=== PATIENT | female | born 1960 | race Caucasian/White ===

== ENCOUNTER → 2017-10-14 10:27 | Outpatient (POV) | payer MEDICAID, SELFPAY | PROVIDERS: Family Provider Family Medicine; Visit Provider Dentist | DX: Z00.00 Encounter for general adult medical examination without abnormal findings (principal) ==

== ENCOUNTER → 2019-02-01 15:01 | Outpatient (CLI) | payer MEDICAID, SELFPAY ==
--- NOTE | 2019-02-01 15:05 | CT_ITS ---
CT lung screening EXAM: CT LUNG LOW DOSE WO CONTRAST HISTORY: 45 pack year smoking history, asymptomatic for lung cancer ITS.REASON: H/O NICOTINE DEPENDENCE ORDERING PHYSICIAN: Clem Quiles MD PATIENT AGE: 58 years COMPARISON: none TECHNIQUE: The exam was performed on a GE Light Speed [address] scanner using 2.90 mGy CTDI. A low dose helical CT CHEST was performed on a multi-detector scanner. All CT scans at the facility use one or more dose reduction, viz: automated exposure control, ma/kV adjustment per patient size (including targeted exams where dose is matched to indication, i.e. head), or iterative reconstruction technique. The LDCT was performed in a facility that meets the criteria for the screening program. Data regarding this exam was submitted to [employer] which is an approved registry. The order for this exam indicates that it came as a result of a lung cancer screening counseling shard decision-making visit that included all the elements required of such a visit including smoking cessation. The radiologist interpreting this exam meets the CMS criteria for the LDCT lung cancer screening program. The exam is reported using the Lung-RADS classification scale and reported to the ACR registry. NOTE: This study was performed for the specific purposes of lung cancer screening and is not an alternative to diagnostic chest CT. RADIATION DOSE: CTDI vol(CT dose Index-volume) = 2.90mG DLP (Dose Length Product) = 91.95 mGcm FINDINGS: Calcified granuloma right middle lobe fibrotic change left lung base. COPD. Minimal pericardial thickening anteriorly. No coronary artery calcium apparent. No suspicious pulmonary nodules IMPRESSION: 1. Lung RADS Category: 2, benign 2. Other findings: COPD RECOMMENDATIONS: 12 month LDCT follow-up
== END ==
PROVIDERS: PCP Family Medicine; Visit Provider Family Medicine
DX: Z12.2 Encounter for screening for malignant neoplasm of respiratory organs (principal); Z87.891 Personal history of nicotine dependence

== ENCOUNTER → 2021-03-05 13:25 | Outpatient (CLI) | payer OTHER, SELFPAY ==
[2021-03-05 14:27] LABS: Basophils # 0.1 K/mm3 (0-0.2); Basophils % 0.8 % (0.1-2.0); Eosinophils # 0.1 K/mm3 (0.0-0.4); Eosinophils % 0.7 % (0.1-12.0); Hematocrit 38.7 % (37.0-47.0); Hemoglobin 13.3 g/dL (12.2-16.2); Lymphocytes # 2.2 K/mm3 (0.7-4.5); Lymphocytes % 26.6 % (10-50); Mean Corpuscular HGB Conc 34.3 g/dL (31.8-35.4); Mean Corpuscular Hemoglobin 31.9 pg (27.0-31.2); Mean Corpuscular Volume 92.8 fl (81-99); Mean Platelet Volume 7.9 fl (7.4-10.4); Monocytes # 0.4 K/mm3 (0.1-1.0); Monocytes % 5.5 % (1.7-9.3); Neutrophils # 5.4 K/mm3 (1.8-7.8); Neutrophils % 66.3 % (37.0-80.0); Platelet Count 184 K/mm3 (142-424); Red Blood Count 4.17 M/mm3 (4.20-5.40); Red Cell Distribution Width 13.7 % (11.5-17.5); White Blood Count 8.1 K/mm3 (4.8-10.8)
[2021-03-05 14:50] LABS: Chloride 103 mmol/L (98-107)
[2021-03-05 14:51] LABS: Potassium 4.4 mmoL/L (3.5-5.1); Sodium 137 mmol/L (136-145)
[2021-03-05 14:53] LABS: Blood Urea Nitrogen 11 mg/dl (7-17); Estimated Glomerular Filt Rate 126 ml/min (>60); GFR (African American) 153 ML/MIN (>60)
[2021-03-05 14:54] LABS: Alanine Aminotransferase 8 U/L (12-78); Albumin Level 3.8 g/dl (3.5-5.0); Albumin/Globulin Ratio 1.5 (1.1-1.8); Alkaline Phosphatase 52 U/L (38-126); Amylase < 30 U/L (30-110); Anion Gap 10.4 mEq/L (5-15); Aspartate Amino Transferase 17 U/L (14-36); Bilirubin,Total 0.6 mg/dl (0.2-1.3); Calcium 8.5 mg/dl (8.4-10.2); Carbon Dioxide 28 mmol/L (22.0-30.0); Globulin 2.5 g/dL (1.3-3.2); Glucose 105 mg/dl (74-100); Lipase < 10 U/L (23-300); Total Protein,Serum 6.3 g/dl (6.3-8.2)
== END ==
PROVIDERS: Visit Provider Surgery
DX: R10.9 Unspecified abdominal pain (principal)
CPT/HCPCS: 36415; 80053; 82150; 83690; 85025

== ENCOUNTER → 2021-03-12 08:31 | Outpatient (CLI) | payer OTHER, SELFPAY ==
--- NOTE | 2021-03-12 08:41 | FL_ITS ---
PROCEDURE: FL UPPER GI SMALL BOWEL CLINICAL INDICATION: abdominal pain COMPARISON: No exams were available for comparison TECHNIQUE: FLUOROSCOPY TIME : 5.3 minutes FINDINGS: The swallowing function and soft motility are normal. Spot films of the cervical esophagus while swallowing show no abnormal anterior or posterior indentation of the barium column. There is a small sliding hiatal hernia and there is moderate free GE reflux to the mid thoracic esophagus with the patient in supine position. The stomach was well distended with barium and air in shows no intrinsic abnormality. The duodenal bulb and duodenal sweep are radiographically normal. There is normal transit time of barium through the small bowel. Barium reached the terminal ileum and cecum by approximately 1-1/2 hours. Fluoroscopy of the terminal ileum and cecum was performed with compression and the terminal ileum appear grossly normal. The cecum never did quite fill out or completely fill with barium but there was no evidence of filling defect or constricting lesion of the cecum or lower ascending colon. IMPRESSION: Small sliding hiatal hernia with free GE reflux to the midthoracic esophagus, otherwise grossly normal upper GI series and small-bowel follow-through. Lack of complete filling of the cecum is somewhat bothersome and if there is a history of anemia suggest consideration of a follow-up CT scan abdomen and pelvis with IV and oral contrast and or colonoscopy for additional evaluation. Dictated by: Dr. Vinicio Zelaya MD 03/12/2021 21:20 Dr. Vinicio Zelaya MD in [facility] 03/12/2021 21:20
--- NOTE | 2021-03-12 08:41 | US_ITS ---
PROCEDURE: US GALLBLADDER CLINICAL INDICATION: right upper quad pain COMPARISON: No exams were available for comparison FINDINGS: Pancreas: Unremarkable though a portion of the tail is partially obscured by bowel gas. Liver: Unremarkable. There is appropriate direction of blood flow within a non dilated portal vein. Right kidney: Unremarkable appearing. The right kidney measures 8.7 x 3.4 by 5.1 cm and appears sonographically normal.. Gallbladder: No stones are evident. There is a small amount biliary sludge layering along the dependent wall. There is no gallbladder wall thickening. Common duct is normal in diameter. IMPRESSION: Small amount of biliary sludge otherwise unremarkable study Dictated by: Dr. Vinicio Zelaya MD 03/12/2021 09:45 Dr. Vinicio Zelaya MD in [facility] 03/12/2021 09:45
== END ==
PROVIDERS: PCP Family Medicine; Visit Provider Surgery
DX: R10.10 Upper abdominal pain, unspecified (principal)
CPT/HCPCS: 74246; 74248; 76705

== ENCOUNTER → 2021-03-17 09:08 | Outpatient (CLI) | payer OTHER, SELFPAY ==
--- NOTE | 2021-03-17 09:08 | NM_ITS ---
PROCEDURE: NM GASTRIC EMPTYING STUDY CLINICAL INDICATION: abdominal pain COMPARISON: No exams were available for comparison TECHNIQUE: DOSE: 0.55 mCi technetium sulfur colloid mixed in radiolabeled meal FINDINGS: 1/2 emptying time is 213 minutes which is markedly prolonged with normal 60+/-30 minutes. There was reflux noted in the esophagus versus poor esophageal emptying on the initial image. There is 47 percent retention at 233 minutes. IMPRESSION: Delayed gastric emptying/gastro paresis with gastroesophageal reflux Dictated by: Dinoi Calles MD 03/17/2021 18:04 Dioni Calles MD in [facility] 03/17/2021 18:04
== END ==
PROVIDERS: PCP Family Medicine; Visit Provider Surgery
DX: R10.9 Unspecified abdominal pain (principal)
CPT/HCPCS: 78264; A9541

== ENCOUNTER → 2021-05-21 07:46 | Outpatient (CLI) | payer OTHER, SELFPAY | PROVIDERS: Visit Provider Internal Medicine Gastroenterology | DX: Z20.822 Contact with and (suspected) exposure to COVID-19 (principal); Z01.812 Encounter for preprocedural laboratory examination; Z12.11 Encounter for screening for malignant neoplasm of colon | CPT/HCPCS: U0003 ==

== ENCOUNTER 2024-08-07 20:04 | Emergency (ER) | payer OTHER, SELFPAY ==
[2024-08-07] VITALS (13 sets, daily range): BP systolic 85–116; BP diastolic 46–83; PULSE 87–99; RESP 19–34; TEMP 38.5–39.3; O2SAT 92–100; BMI 19.5
--- NOTE | 2024-08-07 20:10 | ECG_ITS ---
APPROVED REPORT Exam: Resting ECG HR:92 bpm ECG Measurements Heart Rate 92 AXES PA 143 P 74 QRSd 96 QRS 92 QT 355 T 47 QTc 405 Conclusion SINUS RHYTHM BORDERLINE RIGHT AXIS DEVIATION [QRS AXIS > 90] NONSPECIFIC T-WAVE ABNORMALITY BORDERLINE ECG Significant wandering limits diagnostic ability of this EKG Electronically signed by : NESSA CRENSHAW, 08/10/2024 07:39:08
--- NOTE | 2024-08-07 20:12 | HMH.EDGENADL ---
Discharge Plan Disposition Patient Disposition: Xfer Other Prescriptions Prescriptions: No Action olanzapine 10 mg tablet 10 mg PO desvenlafaxine succinate 50 mg tablet extended release 24 hr 50 mg PO loratadine 10 mg tablet 10 mg PO montelukast 10 mg tablet 10 mg PO Patient Comments: TAKE 1 TABLET BY MOUTH DAILY levothyroxine 100 mcg tablet 100 mcg PO simvastatin 40 mg tablet 40 mg PO Patient Comments: TAKE 1 TABLET BY MOUTH AT BEDTIME risperidone 1 mg tablet 4 mg PO Patient Comments: TAKE ONE TABLET BY MOUTH EVERY NIGHT propranolol 20 mg tablet 20 mg PO Patient Comments: TAKE ONE TABLET BY MOUTH EVERY MORNING benztropine 1 mg tablet 1 mg PO Patient Comments: TAKE ONE TABLET BY MOUTH TWICE DAILY risperidone 2 mg tablet 2 mg PO Patient Comments: TAKE ONE TABLET BY MOUTH EVERY MORNING risperidone 4 mg tablet 4 mg PO Patient Comments: TAKE ONE TABLET BY MOUTH EVERY NIGHT AT BEDTIME famotidine 20 mg tablet 20 mg PO Patient Comments: TAKE 1 TABLET BY MOUTH TWICE DAILY albuterol sulfate 90 mcg/actuation HFA aerosol inhaler 1 inh INHALATION acetaminophen 500 mg tablet 500 mg PO Patient Comments: TAKE 1 TABLET BY MOUTH EVERY 6 HOURS NEEDED FOR PAIN latanoprost 0.005 % drops 1 drp OPHTHALMIC Patient Comments: INSTILL 1 DROP INTO EACH AFFECTED EYE(S) ONCE DAILY IN THE EVENING propranolol 10 mg tablet 10 mg PO ondansetron HCl 4 mg tablet 4 mg PO paliperidone palmitate 234 mg/1.5 mL syringe 234 mg IM Patient Comments: INJECT 1.5MLS INTO THE MUSCLE ONE TIME PER MONTH budesonide-formoterol 160-4.5 mcg/actuation HFA aerosol inhaler 2 puff INHALATION docusate sodium 100 mg capsule 100 mg PO polyethylene glycol 3350 17 gram/dose powder 17 g PO aspirin 325 mg tablet 325 mg PO DAILY Clinical Impressions Clinical Impression: Septic shock, Pancytopenia, Symptomatic anemia, Acute non-ST elevation myocardial infarction (NSTEMI), Dilated bowel Stand Alone Forms Stand Alone Forms: Transfer Record - ED Instructions Patient Instructions: DI for Altered Mental Status Print Language Print Language: Guyanese Discharge ED Provider: Song Howard General Adult HPI <Song Howard MD - Last Filed: 08/07/24 23:40> General Chief complaint: Altered Mental Status Stated complaint: AMS Time Seen by Provider: 08/07/24 20:12 History of Present Illness HPI narrative: Please note that above description of symptoms, in this electronic medical record under categorization of recalled from ER triage doctor by RN are reflective of an initial nursing assessment, however, is not reflective of my full history and physical exam that was personally taken and clarified. Consequentially, this preceding description of symptoms, which may include the patient's categorized chief complaint in the EMR, do not reflect my personal clinical impression, and the ultimate description of history of present illness and patient stated complaints should be deferred to this section of the note. Unless stated otherwise or congruent with this section of the note, additional signs, symptoms, or incongruence should be interpreted as inaccurate with my clinical impression. Related Data Home Medications ?Medication ?Instructions ?Recorded ?Confirmed acetaminophen 500 mg tablet 500 mg PO 03/05/21 03/19/21 albuterol sulfate 90 mcg/actuation 1 inh inhalation 03/05/21 03/19/21 aerosol inhaler aspirin 325 mg tablet 325 mg PO DAILY 03/05/21 03/19/21 benztropine 1 mg tablet 1 mg PO 03/05/21 03/19/21 budesonide-formoterol HFA 160 2 puff inhalation 03/05/21 03/19/21 mcg-4.5 mcg/actuation aerosol inhaler desvenlafaxine succinate 50 mg 50 mg PO 03/05/21 03/19/21 tablet,extended release 24 hr docusate sodium 100 mg capsule 100 mg PO 03/05/21 03/19/21 famotidine 20 mg tablet 20 mg PO 03/05/21 03/19/21 latanoprost 0.005 % eye drops 1 drp ophthalmic (eye) 03/05/21 03/19/21 levothyroxine 100 mcg tablet 100 mcg PO 03/05/21 03/19/21 loratadine 10 mg tablet 10 mg PO 03/05/21 03/19/21 montelukast 10 mg tablet 10 mg PO 03/05/21 03/19/21 olanzapine 10 mg tablet 10 mg PO 03/05/21 03/19/21 ondansetron HCl 4 mg tablet 4 mg PO 03/05/21 03/19/21 paliperidone palmitate 234 mg/1.5 234 mg IM 03/05/21 03/19/21 mL intramuscular syringe polyethylene glycol 3350 17 17 g PO 03/05/21 03/19/21 gram/dose oral powder propranolol 10 mg tablet 10 mg PO 03/05/21 03/19/21 propranolol 20 mg tablet 20 mg PO 03/05/21 03/19/21 risperidone 1 mg tablet 4 mg PO 03/05/21 03/19/21 risperidone 2 mg tablet 2 mg PO 03/05/21 03/19/21 risperidone 4 mg tablet 4 mg PO 03/05/21 03/19/21 simvastatin 40 mg tablet 40 mg PO 03/05/21 03/19/21 Allergies Allergy/AdvReac Type Severity Reaction Status Date / Time erythromycin base Allergy Unknown Verified 03/19/21 13:09 (ERYTHROMYCIN BASE) haloperidol (From HALDOL) Allergy Unknown Verified 03/19/21 13:09 Sulfa (Sulfonamide Allergy Unknown Verified 03/19/21 13:09 Antibiotics) (SULFA (SULFONAMIDE ANTIBIOTICS)) PCN Allergy Unknown Uncoded 03/05/21 12:42 PFSH <Song Howard MD - Last Filed: 08/07/24 23:40> PFS Disclaimer: The information contained in this section may have been updated after the patient was seen, as this information can be updated by other users. Social History Smoking Status: Unknown if ever smoked alcohol intake: never substance use type: denies use current occupational status: disabled Travel in the last 8 weeks: None household members: caregiver housing: assisted living facility Other Medical History Have you received the Pneumonia Vaccine: No <Song Howard MD - Last Filed: 08/07/24 23:40> ROS Obtained: Yes All systems reviewed & no additional complaints except as documented Physical Exam <Song Howard MD - Last Filed: 08/07/24 23:40> General General appearance: lethargic Head Head exam: atraumatic and normocephalic Eye Eye exam: Present normal appearance, PERRL and EOMI ENT ENT exam: Present mucous membranes dry Neck Neck exam: Present normal inspection, full ROM and trachea midline Respiratory Respiratory exam: Present normal lung sounds bilaterally; Absent respiratory distress, wheezes, stridor, accessory muscle use or prolonged expiratory phase Cardiovascular Cardiovascular exam: Present normal rhythm, tachycardia and other (Pulses equal symmetric in upper and lower extremities) Abdominal Exam Abdominal exam: Present soft and tenderness; Absent distention, guarding, rebound, rigidity or pulsatile mass Abdominal tenderness: Present diffuse and moderate Extremities Exam Extremities exam: Absent edema Neurological Exam Neurological exam: Present alert, oriented X3 and CN II-XII intact; Absent motor sensory deficit Skin Skin exam: Present warm and dry; Absent diaphoresis or erythema Medical Decision Making <Song Howard MD - Last Filed: 08/07/24 23:40> Medical Records Medical records reviewed: Yes I reviewed the patient's medical records. Screening: Per USPSTF and CDC recommendations, given the prevalence of disease in our region, it is our hospital?s policy to screen for HIV and viral Hepatitis for all patients aged 18 and over and those with ongoing risk factors. Jai Inquiry Pt receiving controlled substance: No Jai was queried for this patient: No Vital Signs: 08/07/24 20:05 08/07/24 21:00 08/07/24 21:02 Temperature 101.3 F H Temperature Source Rectal Pulse Rate 99 H 96 H Pulse Rate [Left] 93 H Respiratory Rate 24 20 30 H Blood Pressure 103/46 L 113/83 Blood Pressure [Left Arm] 98/54 L Blood Pressure Mean 86 94 Blood Pressure Mean [Left Arm] 68 Blood Pressure Source [Left Arm] Manual Cuff/ Auscultation 02 Sat by Pulse Oximetry 92 L 99 95 Oxygen Delivery Method Non-Rebreather 08/07/24 21:06 08/07/24 21:09 08/07/24 21:10 Temperature Temperature Source Pulse Rate 92 H 91 H 91 H Pulse Rate [Left] Respiratory Rate 27 H 31 H 34 H Blood Pressure 87/53 L 97/59 L 99/55 L Blood Pressure [Left Arm] Blood Pressure Mean 64 72 64 Blood Pressure Mean [Left Arm] Blood Pressure Source [Left Arm] 02 Sat by Pulse Oximetry 95 95 93 L Oxygen Delivery Method 08/07/24 21:12 Temperature Temperature Source Pulse Rate 89 Pulse Rate [Left] Respiratory Rate 34 H Blood Pressure 114/62 Blood Pressure [Left Arm] Blood Pressure Mean 71 Blood Pressure Mean [Left Arm] Blood Pressure Source [Left Arm] 02 Sat by Pulse Oximetry 96 Oxygen Delivery Method Lab Data Lab Results 08/07/24 20:15: WBC 1.3 L*, RBC 0.79 L*, Hgb 3.3 L*, Hct 9.6 L*, MCV 121.4 H, MCH 42.0 H*, MCHC 34.6, RDW 18.7 H, Plt Count 94 L, MPV 9.2, Neut % (Auto) 58.2, Lymph % (Auto) 38.3, [place] % (Auto) 2.6, Eos % (Auto) 0.3, Baso % (Auto) 0.6, Neut # (Auto) 0.8 L*, Lymph # (Auto) 0.5 L, [place] # (Auto) 0.0 L, Eos # (Auto) 0.0, Baso # (Auto) 0.0, PT 13.0 H, INR 1.18 H, APTT 20.2 L, Sodium 132 L, Potassium 3.1 L, Chloride 101, Carbon Dioxide 26, Anion Gap 8.1, BUN 18 H, Creatinine 0.70, Estimated Creat Clear 42, Estimated GFR 85, Est GFR ( Amer) 103, Glucose 140 H, Lactate 2.0, Calcium 7.6 L, Total Bilirubin 1.1, AST 17, ALT 12, Alkaline Phosphatase 48, Troponin I 0.82 H, NT-Pro-B Natriuret Pep 2310 H, Total Protein 4.9 L, Albumin 2.8 L, Globulin 2.1, Albumin/Globulin Ratio 1.3, TSH 2.44, Thyroxine (T4) 13.7 H, Blood Type AB Positive, Antibody Screen Positive, Crossmatch (AHG) See Detail 08/07/24 20:18: HIV 1&2 Antibody Rapid Nonreactive 08/07/24 20:30: Specimen Source Left brachial, O2 % 100, ABG pH 7.56 H*, ABG pCO2 31.5 L, ABG pO2 492.5 H, ABG HCO3 27.7 H, ABG Total CO2 28.7 H, ABG O2 Saturation 100, ABG Base Excess 5.5 H, Dioni Test Non applicable, ABG Lactate 1.4 08/07/24 20:32: Blood Type Confirm AB Positive 08/07/24 22:30: Hgb 6.6 L* D, Hct 18.5 L* 08/07/24 23:24: Urine Color Yellow, Urine Appearance Clear, Urine pH 7.0, Ur Specific [place] <= 1.005, Urine Protein Negative, Urine Glucose (UA) Negative, Urine Ketones Negative, Urine Blood Negative, Urine Nitrate Negative, Urine Bilirubin Negative, Urine Urobilinogen 4.0, Ur Leukocyte Esterase Negative, Urine RBC None, Urine WBC 3-5, Ur Squamous Epith Cells Occasional, Urine Bacteria 1+ 08/08/24 00:12: Troponin I 2.11 H 08/07/24 22:30 08/07/24 20:15 Orders (Tests/Meds): ED MEDICATIONS Generic Name Dose Route Start Last Admin Trade Name Sari PRN Reason Stop Dose Admin Hydrocortisone Sodium Succinate 100 mg 08/08/24 01:09 08/08/24 01:18 Hydrocortisone Sod Succinate 100mg Vial IV 08/08/24 01:10 100 mg ONCE ONE Administration Sodium Chloride 250 mls @ 25 mls/hr 08/07/24 20:45 08/08/24 00:42 Sod Chlor 0.9% 250ml Bag IV 08/08/24 20:44 Not Given .Q10H RAPHAEL Sodium Chloride 250 mls @ 25 mls/hr 08/07/24 23:45 08/08/24 00:59 Sod Chlor 0.9% 250ml Bag IV 08/08/24 23:44 Not Given .Q10H RAPHAEL Norepinephrine/Dextrose 8 mg in 250 mls @ 15 mls/hr 08/08/24 00:15 08/08/24 01:08 Norepinephrine 8mg/250ml-D5w Premix IV 09/07/24 00:14 12 mcg/min .[id number] RAPHAEL 22.5 mls/hr Titration Protocol 8 MCG/MIN Vasopressin 40 unit/ Sodium 102 mls @ 1.53 mls/hr 08/08/24 01:09 Chloride IV 09/07/24 01:08 .Q24H RAPHAEL Protocol 0.01 UNITS/MIN Miscellaneous 1 each 08/07/24 21:15 08/07/24 21:30 Vancomycin Consult Request NOTAPPLIC 09/06/24 21:14 1 each CONSULT PHARMACY RAPHAEL Administration Sodium Chloride 10 ml 08/07/24 20:13 Sodium Chloride 0.9% 10ml Flush Syringe IV 09/06/24 20:12 NEEDED PRN Maintain IV Site Discontinued Medications Generic Name Dose Route Start Last Admin Trade Name Sari PRN Reason Stop Dose Admin Acetaminophen 1,000 mg 08/07/24 23:27 08/08/24 00:08 Acetaminophen 1,000mg/100ml Vial IV 08/07/24 23:28 1,000 mg ONCE ONE Administration Diphenhydramine HCl 50 mg 08/07/24 21:03 08/07/24 21:58 Diphenhydramine 50mg/Ml Vial IV 08/07/24 21:04 50 mg ONCE ONE Administration Lactated Ringer's 1,000 mls @ 999 mls/hr 08/07/24 20:13 08/08/24 00:01 Lactated Ringer's 1000 Ml Bag IV 08/07/24 21:13 Not Given .Q1H1M ONE Cefepime HCl 2 gm/ Sodium 100 mls @ 200 mls/hr 08/07/24 21:11 08/07/24 21:59 Chloride IV 08/07/24 21:40 200 mls/hr ONCE ONE Administration Metronidazole 500 mg in 100 mls @ 100 mls/hr 08/07/24 21:11 08/07/24 22:00 Flagyl 500mg/100ml Ivpb IV 08/07/24 22:10 100 mls/hr ONCE ONE Administration Vancomycin HCl 1,000 mg/ 250 mls @ 125 mls/hr 08/07/24 21:30 08/07/24 21:59 Sodium Chloride IV 08/07/24 23:29 125 mls/hr ONCE ONE Administration Lactated Ringer's 1,360 mls @ 680 mls/hr 08/07/24 21:36 08/07/24 22:00 Lactated Ringer's 1000 Ml Bag 30 ml/kg infuse over 2 hr (1360 ml) 08/07/24 23:35 680 mls/hr IV Administration .Q2H ONE Calcium Gluconate/Sodium Chloride 2 gm in 100 mls @ 50 mls/hr 08/07/24 22:49 08/08/24 00:08 Calcium Gluconate 2,000mg/100ml Nacl Premix IV 08/08/24 00:48 50 mls/hr ONCE ONE Administration Calcium Gluconate/Sodium Chloride 2 gm in 100 mls @ 50 mls/hr 08/07/24 23:27 08/08/24 01:18 Calcium Gluconate 2,000mg/100ml Nacl Premix IV 08/08/24 01:26 50 mls/hr ONCE ONE Administration Iopamidol 160 ml 08/07/24 22:30 08/07/24 22:31 Iopamidol-370 (76%);100ml Bottle IV 08/07/24 22:31 160 ml ONCE ONE Administration Sodium Chloride 50 ml 08/07/24 22:30 08/07/24 22:31 0.9 % Sodium Chloride 50 Ml Vial IV 08/07/24 22:31 50 ml ONCE ONE Administration Sodium Chloride 10 ml 08/07/24 22:30 08/07/24 22:31 Sodium Chloride 0.9% 10ml Syr (Rad Only) IV 08/07/24 22:31 10 ml ONCE ONE Administration ORDERS Category Date Time Status Antibody Identification Stat [facility] 08/07/24 20:15 Received Transfuse RBC's [Red Blood Cells] Stat K 08/07/24 20:15 Results Type and Screen Stat K 08/07/24 20:[address] angio abdomen pelvis Stat Cat Scan 08/07/24 20:[address] angio chest - dissection Stat Cat Scan 08/07/24 20:[address] angio head Stat Cat Scan 08/07/24 20:[address] angio neck Stat Cat Scan 08/07/24 20:[address] cervical spine wo con Stat Cat Scan 08/07/24 20:[address] head/brain wo con Stat Cat Scan 08/07/24 20:[address] lumbar spine wo con Stat Cat Scan 08/07/24 20:[address] thoracic spine wo con Stat Cat Scan 08/07/24 20:15 Completed XR chest portable Stat Exams 08/07/24 20:15 Completed XR pelvis 1-2V Stat Exams 08/07/24 20:15 Completed Activated Partial Thrombo Time Stat Lab 08/07/24 20:15 Completed Complete Blood Count Auto Diff Stat Lab 08/07/24 20:15 Completed Comprehensive Metabolic Panel Stat Lab 08/07/24 20:15 Completed HIV (1&2) Antibody Rapid Stat Lab 08/07/24 20:18 Completed Hemoglobin & Hematocrit, Post Timed Lab 08/07/24 22:30 Completed Hep C Ab with Reflex to RNA Stat Lab 08/07/24 20:18 Received Lactic Acid Stat Lab 08/07/24 20:15 Completed NT Pro Brain Natriuretic Pep. Stat Lab 08/07/24 20:15 Completed Prothrombin Time INR Stat Lab 08/07/24 20:15 Completed T4 (Thyroxine) Stat Lab 08/07/24 20:15 Completed TSH [Thyroid Stimulating Hormone] Stat Lab 08/07/24 20:15 Completed Troponin I Q3H Lab 08/07/24 23:30 Completed Troponin I Q3H Lab 08/08/24 02:30 Ordered Troponin I Stat Lab 08/07/24 20:15 Completed Urinalysis and Microscopic Stat Lab 08/07/24 23:24 Completed Blood Culture Stat Micro 08/07/24 20:15 Received ABG [Arterial Blood Gas] Stat RT 08/07/24 20:30 Completed Lactate Arterial Stat RT 08/07/24 20:30 Completed VBG [Venous Blood Gas] Stat RT 08/07/24 20:13 Ordered HEART Score History (anamnesis): Slightly suspicious ECG: Non-specific disturbance Age: 45-65 years Risk factors: 3 or more risk factors Troponin: > 3x normal limit HEART Score: 6 Medical Decision Narrative: 64-year-old female history of hypertension, hyperlipidemia, hypothyroidism, psychiatric comorbidities presenting with lethargy. EMS was called out for lethargy. When they arrived, patient was lethargic, GCS 12, minimally responsive. 80% on room air. Put on nasal cannula oxygen and brought to the emergency department. On arrival, patient complaining of abdominal pain and weakness. GCS 14 for me. Following commands, arousable to voice. Patient appears very acutely on chronically ill. Pallid, weak, low skin turgor. Abdomen soft, but diffusely tender and appears to be out of proportion to exam. Patient had urinated and had bowel movement on herself and route. Does not appear to be melanotic. Cardiopulmonary exam with tachycardia, but no murmurs gallops or rubs. Lungs are clear bilaterally. Differential includes symptomatic anemia, GI bleed, UTI, sepsis, intracranial bleed, mesenteric ischemia, metabolic, endocrinologic, iatrogenic, pharmacologic, overdose, withdrawal, among others Patient placed on continuous cardiac monitoring and continuous pulse ox with initial blood pressure 98/54, heart rate 93, saturation 92% on nonrebreather. Independent interpretation of EKG shows wandering baseline, but no obvious acute ischemic change. Rate of 92, WI 143, QRS 96, QTc 405.. Patient was given 1 l of fluids empirically for symptomatic management and correction of underlying abnormalities. Workup independently interpreted and significant for ABG with pH 7.5, CO2 low at 31, bicarb normal. Hemoglobin [id number] 3.0. Patient's lactate 1.4. 2 units of uncrossed matched O+ blood transfused. Patient began having erythema of the left upper extremity with transfuse blood, given 50 mg IV Benadryl. Type and screen later resulted with a be positive blood positive for antibodies. Further workup demonstrates CBC concerning for leukopenia 1.3 with neutropenia of 0.8. Hemoglobin 3.3 pretransfusion, 6.6 after 2 units of packed red cells. Platelets also low at 94,000. INR 1.18, PTT 20.2. Chemistry with hyponatremia 132, hypokalemia 3.1, nonactionable LFTs. Patient's initial troponin 0.82, BNP elevated at 2300. Mildly elevated T4, normal TSH. On independent interpretation of imaging, No acute findings on chest x-ray. No intracranial hemorrhage, no cervical, thoracic, or lumbar spine injury. No obvious intrathoracic abnormality, PE, dissection, etc. See radiology read for full review of final results. Heart score 6. On reevaluation, patient appears to be mentating better, blood pressure improved, still febrile given IV Tylenol for this. 2 more grams of calcium as well as empiric antibiotics given as well. With reported allergy to sulfa antibiotics, vancomycin, cefepime, Flagyl. Tissue perfusion reassessment performed within 3 hours, patient mentating much better than baseline on arrival, still following commands, hemodynamically stable. [facility] was contacted, unable to accept patient because she does not meet ICU criteria, given her hemoglobin of 6.6 after transfusion and hemodynamic stability. Recommended calling another facility. was contacted. Prior to transfer, care handed off to oncoming physician. Director Of Student [employer] disclaimer Much of this encounter note is an electronic labor utilization superintendent spoken language to printed text. Electronic labor utilization superintendent of the spoken language may permit errors. Although I have reviewed the note, some errors may still exist. <Farhat Richmond MD - Last Filed: 08/08/24 01:46> Vital Signs: 08/07/24 20:05 08/07/24 21:00 08/07/24 21:02 Temperature 101.3 F H Temperature Source Rectal Pulse Rate 99 H 96 H Pulse Rate [Left] 93 H Respiratory Rate 24 20 30 H Blood Pressure 103/46 L 113/83 Blood Pressure [Left Arm] 98/54 L Blood Pressure Mean 86 94 Blood Pressure Mean [Left Arm] 68 Blood Pressure Source [Left Arm] Manual Cuff/ Auscultation 02 Sat by Pulse Oximetry 92 L 99 95 Oxygen Delivery Method Non-Rebreather 08/07/24 21:06 08/07/24 21:09 08/07/24 21:10 Temperature Temperature Source Pulse Rate 92 H 91 H 91 H Pulse Rate [Left] Respiratory Rate 27 H 31 H 34 H Blood Pressure 87/53 L 97/59 L 99/55 L Blood Pressure [Left Arm] Blood Pressure Mean 64 72 64 Blood Pressure Mean [Left Arm] Blood Pressure Source [Left Arm] 02 Sat by Pulse Oximetry 95 95 93 L Oxygen Delivery Method 08/07/24 21:12 Temperature Temperature Source Pulse Rate 89 Pulse Rate [Left] Respiratory Rate 34 H Blood Pressure 114/62 Blood Pressure [Left Arm] Blood Pressure Mean 71 Blood Pressure Mean [Left Arm] Blood Pressure Source [Left Arm] 02 Sat by Pulse Oximetry 96 Oxygen Delivery Method Lab Data Lab Results 08/07/24 20:15: WBC 1.3 L*, RBC 0.79 L*, Hgb 3.3 L*, Hct 9.6 L*, MCV 121.4 H, MCH 42.0 H*, MCHC 34.6, RDW 18.7 H, Plt Count 94 L, MPV 9.2, Neut % (Auto) 58.2, Lymph % (Auto) 38.3, [place] % (Auto) 2.6, Eos % (Auto) 0.3, Baso % (Auto) 0.6, Neut # (Auto) 0.8 L*, Lymph # (Auto) 0.5 L, [place] # (Auto) 0.0 L, Eos # (Auto) 0.0, Baso # (Auto) 0.0, PT 13.0 H, INR 1.18 H, APTT 20.2 L, Sodium 132 L, Potassium 3.1 L, Chloride 101, Carbon Dioxide 26, Anion Gap 8.1, BUN 18 H, Creatinine 0.70, Estimated Creat Clear 42, Estimated GFR 85, Est GFR ( Amer) 103, Glucose 140 H, Lactate 2.0, Calcium 7.6 L, Total Bilirubin 1.1, AST 17, ALT 12, Alkaline Phosphatase 48, Troponin I 0.82 H, NT-Pro-B Natriuret Pep 2310 H, Total Protein 4.9 L, Albumin 2.8 L, Globulin 2.1, Albumin/Globulin Ratio 1.3, TSH 2.44, Thyroxine (T4) 13.7 H, Blood Type AB Positive, Antibody Screen Positive, Crossmatch (AHG) See Detail 08/07/24 20:18: HIV 1&2 Antibody Rapid Nonreactive 08/07/24 20:30: Specimen Source Left brachial, O2 % 100, ABG pH 7.56 H*, ABG pCO2 31.5 L, ABG pO2 492.5 H, ABG HCO3 27.7 H, ABG Total CO2 28.7 H, ABG O2 Saturation 100, ABG Base Excess 5.5 H, Dioni Test Non applicable, ABG Lactate 1.4 08/07/24 20:32: Blood Type Confirm AB Positive 08/07/24 22:30: Hgb 6.6 L* D, Hct 18.5 L* 08/07/24 23:24: Urine Color Yellow, Urine Appearance Clear, Urine pH 7.0, Ur Specific [place] <= 1.005, Urine Protein Negative, Urine Glucose (UA) Negative, Urine Ketones Negative, Urine Blood Negative, Urine Nitrate Negative, Urine Bilirubin Negative, Urine Urobilinogen 4.0, Ur Leukocyte Esterase Negative, Urine RBC None, Urine WBC 3-5, Ur Squamous Epith Cells Occasional, Urine Bacteria 1+ 08/08/24 00:12: Troponin I 2.11 H Orders (Tests/Meds): ED MEDICATIONS Generic Name Dose Route Start Last Admin Trade Name Bharatq PRN Reason Stop Dose Admin Hydrocortisone Sodium Succinate 100 mg 08/08/24 01:09 08/08/24 01:18 Hydrocortisone Sod Succinate 100mg Vial IV 08/08/24 01:10 100 mg ONCE ONE Administration Sodium Chloride 250 mls @ 25 mls/hr 08/07/24 20:45 08/08/24 00:42 Sod Chlor 0.9% 250ml Bag IV 08/08/24 20:44 Not Given .Q10H RAPHAEL Sodium Chloride 250 mls @ 25 mls/hr 08/07/24 23:45 08/08/24 00:59 Sod Chlor 0.9% 250ml Bag IV 08/08/24 23:44 Not Given .Q10H RAPHAEL Norepinephrine/Dextrose 8 mg in 250 mls @ 15 mls/hr 08/08/24 00:15 08/08/24 01:08 Norepinephrine 8mg/250ml-D5w Premix IV 09/07/24 00:14 12 mcg/min .[id number] RAPHAEL 22.5 mls/hr Titration Protocol 8 MCG/MIN Vasopressin 40 unit/ Sodium 102 mls @ 1.53 mls/hr 08/08/24 01:09 Chloride IV 09/07/24 01:08 .Q24H [facility] Protocol 0.01 UNITS/MIN Miscellaneous 1 each 08/07/24 21:15 08/07/24 21:30 Vancomycin Consult Request NOTAPPLIC 09/06/24 21:14 1 each CONSULT PHARMACY RAPHAEL Administration Sodium Chloride 10 ml 08/07/24 20:13 Sodium Chloride 0.9% 10ml Flush Syringe IV 09/06/24 20:12 NEEDED PRN Maintain IV Site Discontinued Medications Generic Name Dose Route Start Last Admin Trade Name Freq PRN Reason Stop Dose Admin Acetaminophen 1,000 mg 08/07/24 23:27 08/08/24 00:08 Acetaminophen 1,000mg/100ml Vial IV 08/07/24 23:28 1,000 mg ONCE ONE Administration Diphenhydramine HCl 50 mg 08/07/24 21:03 08/07/24 21:58 Diphenhydramine 50mg/Ml Vial IV 08/07/24 21:04 50 mg ONCE ONE Administration Lactated Ringer's 1,000 mls @ 999 mls/hr 08/07/24 20:13 08/08/24 00:01 Lactated Ringer's 1000 Ml Bag IV 08/07/24 21:13 Not Given .Q1H1M ONE Cefepime HCl 2 gm/ Sodium 100 mls @ 200 mls/hr 08/07/24 21:11 08/07/24 21:59 Chloride IV 08/07/24 21:40 200 mls/hr ONCE ONE Administration Metronidazole 500 mg in 100 mls @ 100 mls/hr 08/07/24 21:11 08/07/24 22:00 Flagyl 500mg/100ml Ivpb IV 08/07/24 22:10 100 mls/hr ONCE ONE Administration Vancomycin HCl 1,000 mg/ 250 mls @ 125 mls/hr 08/07/24 21:30 08/07/24 21:59 Sodium Chloride IV 08/07/24 23:29 125 mls/hr ONCE ONE Administration Lactated Ringer's 1,360 mls @ 680 mls/hr 08/07/24 21:36 08/07/24 22:00 Lactated Ringer's 1000 Ml Bag 30 ml/kg infuse over 2 hr (1360 ml) 08/07/24 23:35 680 mls/hr IV Administration .Q2H ONE Calcium Gluconate/Sodium Chloride 2 gm in 100 mls @ 50 mls/hr 08/07/24 22:49 08/08/24 00:08 Calcium Gluconate 2,000mg/100ml Nacl Premix IV 08/08/24 00:48 50 mls/hr ONCE ONE Administration Calcium Gluconate/Sodium Chloride 2 gm in 100 mls @ 50 mls/hr 08/07/24 23:27 08/08/24 01:18 Calcium Gluconate 2,000mg/100ml Nacl Premix IV 08/08/24 01:26 50 mls/hr ONCE ONE Administration Iopamidol 160 ml 08/07/24 22:30 08/07/24 22:31 Iopamidol-370 (76%);100ml Bottle IV 08/07/24 22:31 160 ml ONCE ONE Administration Sodium Chloride 50 ml 08/07/24 22:30 08/07/24 22:31 0.9 % Sodium Chloride 50 Ml Vial IV 08/07/24 22:31 50 ml ONCE ONE Administration Sodium Chloride 10 ml 08/07/24 22:30 08/07/24 22:31 Sodium Chloride 0.9% 10ml Syr (Rad Only) IV 08/07/24 22:31 10 ml ONCE ONE Administration ORDERS Category Date Time Status Antibody Identification Stat [facility] 08/07/24 20:15 Received Transfuse RBC's [Red Blood Cells] Stat [facility] 08/07/24 20:15 Results Type and Screen Stat [facility] 08/07/24 20:[address] angio abdomen pelvis Stat Cat Scan 08/07/24 20:[address] angio chest - dissection Stat Cat Scan 08/07/24 20:[address] angio head Stat Cat Scan 08/07/24 20:[address] angio neck Stat Cat Scan 08/07/24 20:[address] cervical spine wo con Stat Cat Scan 08/07/24 20:[address] head/brain wo con Stat Cat Scan 08/07/24 20:[address] lumbar spine wo con Stat Cat Scan 08/07/24 20:[address] thoracic spine wo con Stat Cat Scan 08/07/24 20:15 Completed XR chest portable Stat Exams 08/07/24 20:15 Completed XR pelvis 1-2V Stat Exams 08/07/24 20:15 Completed Activated Partial Thrombo Time Stat Lab 08/07/24 20:15 Completed Complete Blood Count Auto Diff Stat Lab 08/07/24 20:15 Completed Comprehensive Metabolic Panel Stat Lab 08/07/24 20:15 Completed HIV (1&2) Antibody Rapid Stat Lab 08/07/24 20:18 Completed Hemoglobin & Hematocrit, Post Timed Lab 08/07/24 22:30 Completed Hep C Ab with Reflex to RNA Stat Lab 08/07/24 20:18 Received Lactic Acid Stat Lab 08/07/24 20:15 Completed NT Pro Brain Natriuretic Pep. Stat Lab 08/07/24 20:15 Completed Prothrombin Time INR Stat Lab 08/07/24 20:15 Completed T4 (Thyroxine) Stat Lab 08/07/24 20:15 Completed TSH [Thyroid Stimulating Hormone] Stat Lab 08/07/24 20:15 Completed Troponin I Q3H Lab 08/07/24 23:30 Completed Troponin I Q3H Lab 08/08/24 02:30 Ordered Troponin I Stat Lab 08/07/24 20:15 Completed Urinalysis and Microscopic Stat Lab 08/07/24 23:24 Completed Blood Culture Stat Micro 08/07/24 20:15 Received ABG [Arterial Blood Gas] Stat RT 08/07/24 20:30 Completed Lactate Arterial Stat RT 08/07/24 20:30 Completed VBG [Venous Blood Gas] Stat RT 08/07/24 20:13 Ordered ECG Data Tracing #1: I reviewed this ECG and interpreted as documented below: Sinus rhythm, rate of 93, ST depressions in the leads V3 through 6 ECG initial impression date: 08/08/24 ECG initial impression time: 00:20 HEART Score HEART Score: 6 Medical Decision Narrative: 64-year-old female history of hypertension, hyperlipidemia, hypothyroidism, psychiatric comorbidities presenting with lethargy. EMS was called out for lethargy. When they arrived, patient was lethargic, GCS 12, minimally responsive. 80% on room air. Put on nasal cannula oxygen and brought to the emergency department. On arrival, patient complaining of abdominal pain and weakness. GCS 14 for me. Following commands, arousable to voice. Patient appears very acutely on chronically ill. Pallid, weak, low skin turgor. Abdomen soft, but diffusely tender and appears to be out of proportion to exam. Patient had urinated and had bowel movement on herself and route. Does not appear to be melanotic. Cardiopulmonary exam with tachycardia, but no murmurs gallops or rubs. Lungs are clear bilaterally. Differential includes symptomatic anemia, GI bleed, UTI, sepsis, intracranial bleed, mesenteric ischemia, metabolic, endocrinologic, iatrogenic, pharmacologic, overdose, withdrawal, among others Patient placed on continuous cardiac monitoring and continuous pulse ox with initial blood pressure 98/54, heart rate 93, saturation 92% on nonrebreather. Independent interpretation of EKG shows wandering baseline, but no obvious acute ischemic change. Rate of 92, WI 143, QRS 96, QTc 405.. Patient was given 1 l of fluids empirically for symptomatic management and correction of underlying abnormalities. Workup independently interpreted and significant for ABG with pH 7.5, CO2 low at 31, bicarb normal. Hemoglobin [id number] 3.0. Patient's lactate 1.4. 2 units of uncrossed matched O+ blood transfused. Patient began having erythema of the left upper extremity with transfuse blood, given 50 mg IV Benadryl. Type and screen later resulted with a be positive blood positive for antibodies. Further workup demonstrates CBC concerning for leukopenia 1.3 with neutropenia of 0.8. Hemoglobin 3.3 pretransfusion, 6.6 after 2 units of packed red cells. Platelets also low at 94,000. INR 1.18, PTT 20.2. Chemistry with hyponatremia 132, hypokalemia 3.1, nonactionable LFTs. Patient's initial troponin 0.82, BNP elevated at 2300. Mildly elevated T4, normal TSH. On independent interpretation of imaging, No acute findings on chest x-ray. No intracranial hemorrhage, no cervical, thoracic, or lumbar spine injury. No obvious intrathoracic abnormality, PE, dissection, etc. See radiology read for full review of final results. Heart score 6. On reevaluation, patient appears to be mentating better, blood pressure improved, still febrile given IV Tylenol for this. 2 more grams of calcium as well as empiric antibiotics given as well. With reported allergy to sulfa antibiotics, vancomycin, cefepime, Flagyl. Tissue perfusion reassessment performed within 3 hours, patient mentating much better than baseline on arrival, still following commands, hemodynamically stable. [facility] was contacted, unable to accept patient because she does not meet ICU criteria, given her hemoglobin of 6.6 after transfusion and hemodynamic stability. Recommended calling another facility. was contacted. Prior to transfer, care handed off to oncoming physician. Director Of [employer] disclaimer Much of this encounter note is an electronic labor utilization superintendent spoken language to printed text. Electronic labor utilization superintendent of the spoken language may permit errors. Although I have reviewed the note, some errors may still exist. Yi ISRA[place]: I assumed care of the patient at the time of handoff from the prior provider. On reassessment patient's respiratory status is improving, now on 5 L nasal cannula instead of nonrebreather. Patient was normotensive for some time, but then became persistently hypotensive. Unfortunately, we are unable to give her any additional blood because she is antibody positive and our lab reports that they have normal blood that they can give her. I am concerned for volume overload in the setting of 2 unit PRBC transfusion and the 2 L that she has already gotten, as such I do not think additional IV fluids would be appropriate at this time. Patient was initiated on Levophed, currently MAP in the 60s on 0.13 mcg/kg/minute. Patient was also given stress dose steroids. Patient's urine returned, no evidence of urinary tract infection. No blood in the urine. CT of the abdomen and pelvis shows multiple abnormalities including edematous and distended small bowel loops thought to be the jejunum,, distended loop of bowel without haustra with fecalized contents which could represent transverse colon versus partially obstructed small bowel loop, large amount of of barium and stool within the colon and rectum. I called and discussed the case with the [facility] and Dr. Alvarez who accepted the patient in transfer. On 08/07/24, the high probability of a clinically significant, sudden or life threatening deterioration of the following system(s) cardio-pulmonary required my full and direct attention, intervention and personal management. The time I documented below is in addition to time spent performing reported procedures but includes the following listed in this critical care notation. Total critical care time: 45 minutes. Farhat Richmond MD Critical Care <Song Howard MD - Last Filed: 08/07/24 23:40> Critical Care Time Critical Care Time: Yes (ID heme) Attestation: On 08/07/24, the high probability of a clinically significant, sudden or life threatening deterioration of the following system(s) required my full and direct attention, intervention and personal management. The time I documented below is in addition to time spent performing reported procedures but includes the following listed in this critical care notation. Total Time Total Critical Care Time: 120
--- NOTE | 2024-08-07 20:15 | XR_ITS ---
PROCEDURE INFORMATION: Exam: XR Chest Exam date and time: 08/07/2024 10:17 PM Age: 64 years old Clinical indication: Injury or trauma; Blunt trauma (contusions or hematomas) TECHNIQUE: Imaging protocol: Radiologic exam of the chest. Views: 1 view. COMPARISON: CT ANGIO CHEST 08/07/2024 10:06 PM FINDINGS: Lungs: Unremarkable. No consolidation. Pleural spaces: Unremarkable. No pleural effusion. No pneumothorax. Heart/Mediastinum: Unremarkable. No cardiomegaly. Bones/joints: Unremarkable. IMPRESSION: No acute findings.
--- NOTE | 2024-08-07 20:15 | CT_ITS ---
PROCEDURE INFORMATION: Exam: CT Thoracic Spine Without Contrast Exam date and time: 08/07/2024 9:49 PM Age: 64 years old Clinical indication: Lethargic, found down TECHNIQUE: Imaging protocol: Computed tomography of the thoracic spine without contrast. Radiation optimization: All CT scans at this facility use at least one of these dose optimization techniques: automated exposure control; mA and/or kV adjustment per patient size (includes targeted exams where dose is matched to clinical indication); or iterative reconstruction. COMPARISON: CT THORACIC SPINE WO CON 08/07/2024 9:49 PM FINDINGS: Bones/joints: No acute fracture. Normal alignment. No significant disc bulge or herniation. No severe spinal canal stenosis. No significant neural foraminal narrowing. Soft tissues: Unremarkable. IMPRESSION: Unremarkable CT Spine.
--- NOTE | 2024-08-07 20:15 | CT_ITS ---
PROCEDURE INFORMATION: Exam: CTA Chest With Contrast Exam date and time: 08/07/2024 10:06 PM Age: 64 years old Clinical indication: Lethargic, found down TECHNIQUE: Imaging protocol: Computed tomographic angiography of the chest with contrast. Exam focused on the arteries. 3D rendering (Not supervised by radiologist): MIP and/or 3D reconstructed images were created by the technologist. Radiation optimization: All CT scans at this facility use at least one of these dose optimization techniques: automated exposure control; mA and/or kV adjustment per patient size (includes targeted exams where dose is matched to clinical indication); or iterative reconstruction. Contrast material: ISO 370; Contrast volume: 80 ml; Contrast route: INTRAVENOUS (IV); COMPARISON: LUNGSCREEN CT lung screening 02/01/2019 3:15 PM FINDINGS: Pulmonary arteries: Normal. No pulmonary emboli. Aorta: Unremarkable. No aortic aneurysm. No aortic dissection. Lungs: Unremarkable. No consolidation. No masses. Pleural spaces: Unremarkable. No pneumothorax. No pleural effusion. Heart: Unremarkable. No cardiomegaly. No pericardial effusion. Lymph nodes: Unremarkable. No enlarged lymph nodes. Bones/joints: Unremarkable. No acute fracture. Soft tissues: Unremarkable. IMPRESSION: No acute findings.
--- NOTE | 2024-08-07 20:15 | CT_ITS ---
PROCEDURE INFORMATION: Exam: CTA Abdomen and Pelvis With Contrast Exam date and time: 08/07/2024 10:06 PM Age: 64 years old Clinical indication: Lethargic, found down TECHNIQUE: Imaging protocol: Computed tomographic angiography of the abdomen and pelvis with contrast. Exam focused on the arteries. 3D rendering (Not supervised by radiologist): MIP and/or 3D reconstructed images were created by the technologist. Radiation optimization: All CT scans at this facility use at least one of these dose optimization techniques: automated exposure control; mA and/or kV adjustment per patient size (includes targeted exams where dose is matched to clinical indication); or iterative reconstruction. Contrast material: ISO 370; Contrast volume: 80 ml; Contrast route: INTRAVENOUS (IV); COMPARISON: CT ANGIO ABDOMEN PELVIS 08/07/2024 10:06 PM FINDINGS: Aorta: No aortic aneurysm. No aortic dissection. Celiac trunk and mesenteric arteries: No occlusion or significant stenosis. Renal arteries: No occlusion or significant stenosis. Right iliac arteries: No occlusion or significant stenosis. Left iliac arteries: No occlusion or significant stenosis. Liver: No mass. Gallbladder and biliary ducts: Unremarkable. No calcified stones. No ductal dilation. Pancreas: Unremarkable. No mass. No ductal dilation. Spleen: Unremarkable. No splenomegaly. Adrenal glands: Unremarkable. No mass. Kidneys and ureters: Unremarkable. No solid mass. No hydronephrosis. Stomach and bowel: Prominent thickening of a small bowel loop in the midabdomen, suspect proximal jejunum. Large amount of stool throughout the colon. Ahaustral distended loop of bowel with fecalized contents, possibly transverse colon versus a partially obstructed small bowel loop. Concern for narrowing at the splenic flexure, ensure that colonoscopy is up-to-date. Appendix: No evidence of appendicitis. Intraperitoneal space: Unremarkable. No free air. No significant fluid collection. Lymph nodes: Unremarkable. No enlarged lymph nodes. Urinary bladder: Unremarkable. No mass. Reproductive: Unremarkable as visualized. Bones/joints: No acute fracture. Soft tissues: Unremarkable. IMPRESSION: 1. Ahaustral distended loop of bowel with fecalized contents, possibly transverse colon versus a partially obstructed small bowel loop. Concern for narrowing at the splenic flexure, ensure that colonoscopy is up-to-date. 2. Prominent thickening of a small bowel loop in the midabdomen, suspect proximal jejunum. 3. Large amount of barium in the descending colon and rectum. Consider partial obstruction related to this.
--- NOTE | 2024-08-07 20:15 | CT_ITS ---
PROCEDURE INFORMATION: Exam: CT Lumbar Spine Without Contrast Exam date and time: 08/07/2024 9:52 PM Age: 64 years old Clinical indication: Lethargic, found down TECHNIQUE: Imaging protocol: Computed tomography of the lumbar spine without contrast. Radiation optimization: All CT scans at this facility use at least one of these dose optimization techniques: automated exposure control; mA and/or kV adjustment per patient size (includes targeted exams where dose is matched to clinical indication); or iterative reconstruction. COMPARISON: CT THORACIC SPINE WO CON 08/07/2024 9:49 PM FINDINGS: Bones/joints: No acute fracture. Normal alignment. L1-L2: No significant disc bulge or herniation. No severe spinal canal stenosis. No significant neural foraminal narrowing. L2-L3: No significant disc bulge or herniation. No severe spinal canal stenosis. No significant neural foraminal narrowing. L3-L4: No significant disc bulge or herniation. No severe spinal canal stenosis. No significant neural foraminal narrowing. L4-L5: No significant disc bulge or herniation. No severe spinal canal stenosis. No significant neural foraminal narrowing. L5-S1: No significant disc bulge or herniation. No severe spinal canal stenosis. No significant neural foraminal narrowing. Soft tissues: Unremarkable. IMPRESSION: Unremarkable spine.
--- NOTE | 2024-08-07 20:15 | XR_ITS ---
PROCEDURE INFORMATION: Exam: XR Pelvis Exam date and time: 08/07/2024 10:17 PM Age: 64 years old Clinical indication: Injury or trauma; Blunt trauma (contusions or hematomas); Bilateral; Pelvic region TECHNIQUE: Imaging protocol: Radiologic exam of the pelvis. Views: 1 or 2 view. COMPARISON: CT ANGIO ABDOMEN PELVIS 08/07/2024 10:06 PM FINDINGS: Bones/joints: Unremarkable. No acute fracture. Soft tissues: Unremarkable. IMPRESSION: No acute findings.
--- NOTE | 2024-08-07 20:15 | CT_ITS ---
PROCEDURE INFORMATION: Exam: CTA Neck With Contrast Exam date and time: 08/07/2024 9:59 PM Age: 64 years old Clinical indication: Lethargic, found down TECHNIQUE: Imaging protocol: Computed tomographic angiography of the neck with contrast. Exam focused on the cervical segments of the vasculature. 3D rendering (Not supervised by radiologist): MIP and/or 3D reconstructed images were created by the technologist. Radiation optimization: All CT scans at this facility use at least one of these dose optimization techniques: automated exposure control; mA and/or kV adjustment per patient size (includes targeted exams where dose is matched to clinical indication); or iterative reconstruction. Contrast material: ISO 370; Contrast volume: 80 ml; Contrast route: INTRAVENOUS (IV); COMPARISON: CT CERVICAL SPINE WO CON 08/07/2024 9:46 PM FINDINGS: Right common carotid artery: No stenosis. No dissection or occlusion. Right internal carotid artery: No stenosis of the extracranial segment. No dissection or occlusion. Right external carotid artery: No occlusion or stenosis of the origin. Left common carotid artery: No stenosis. No dissection or occlusion. Left internal carotid artery: No stenosis of the extracranial segment. No dissection or occlusion. Left external carotid artery: No occlusion or stenosis of the origin. Right vertebral artery: No stenosis. No dissection or occlusion. Left vertebral artery: No stenosis. No dissection or occlusion. Soft tissues: Normal. No significant soft tissue swelling. Bones/joints: No acute fracture. Esophagus: Fluid-filled dilated esophagus. Other findings: Calcific plaque at the carotid bifurcations without hemodynamically significant stenosis. IMPRESSION: 1. No evidence for occlusion, stenosis or dissection of the cervical vessels. 2. Calcific plaque at the carotid bifurcations without hemodynamically significant stenosis. 3. Fluid-filled dilated esophagus. CT chest may be helpful. REFERENCES: NASCET CRITERIA. The degree of stenosis in the cervical segment of the internal carotid artery is based on NASCET criteria. Normal is no stenosis. Mild is less than 50% stenosis. Moderate is 50-69% stenosis. Severe is 70% to 99% stenosis. Total occlusion is no detectable patent lumen.
--- NOTE | 2024-08-07 20:15 | CT_ITS ---
PROCEDURE INFORMATION: Exam: CT Cervical Spine Without Contrast Exam date and time: 08/07/2024 9:46 PM Age: 64 years old Clinical indication: Lethargic, found down TECHNIQUE: Imaging protocol: Computed tomography of the cervical spine without contrast. Radiation optimization: All CT scans at this facility use at least one of these dose optimization techniques: automated exposure control; mA and/or kV adjustment per patient size (includes targeted exams where dose is matched to clinical indication); or iterative reconstruction. COMPARISON: CT HEAD/BRAIN WO CON 08/07/2024 9:42 PM FINDINGS: Bones: Spinal alignment is normal. No fracture or bone destruction. Multilevel degenerative disc disease predominantly at C2-C3, C3-C4, C4-C5 levels with disc space narrowing and small disc osteophyte complexes. [id number] multilevel facet arthropathy. Paranasal sinuses: Moderate mucosal thickening sphenoid sinus. Lungs: Lung apices are normal. Vasculature: Right carotid calcifications. Soft tissues: Unremarkable. IMPRESSION: 1. Spinal alignment is normal. 2. No fracture or bone destruction. 3. Multilevel degenerative disc disease predominantly at C2-C3, C3-C4, C4-C5 levels with disc space narrowing and small disc osteophyte complexes. 4. Tqtj-ye-qtxqtcwb multilevel facet arthropathy. 5. Right carotid calcifications. 6. Moderate mucosal thickening sphenoid sinus.
--- NOTE | 2024-08-07 20:15 | CT_ITS ---
PROCEDURE INFORMATION: Exam: CT Head Without Contrast Exam date and time: 08/07/2024 9:42 PM Age: 64 years old Clinical indication: Other: Lethargic, found down TECHNIQUE: Imaging protocol: Computed tomography of the head without contrast. Radiation optimization: All CT scans at this facility use at least one of these dose optimization techniques: automated exposure control; mA and/or kV adjustment per patient size (includes targeted exams where dose is matched to clinical indication); or iterative reconstruction. COMPARISON: CT HEAD/BRAIN WO CON 08/07/2024 9:42 PM FINDINGS: Brain: No evidence for intracranial hemorrhage, mass lesions or acute stroke. Intracranial vascular calcifications. Cerebral ventricles: No ventriculomegaly. Pituitary gland and sella: Negative Paranasal sinuses: Moderate mucosal thickening sphenoid sinus. Mastoid air cells: Visualized mastoid air cells are well aerated. Orbital cavities: Negative. Parotid and submandibular glands: Negative Bones: Unremarkable. No acute fracture. Soft tissues: Unremarkable. Vasculature: Negative. IMPRESSION: 1. No evidence for intracranial hemorrhage, mass lesions or acute stroke. 2. Intracranial vascular calcifications. 3. Moderate mucosal thickening sphenoid sinus.
--- NOTE | 2024-08-07 20:15 | CT_ITS ---
PROCEDURE INFORMATION: Exam: CTA Head With Contrast, Arteriography Exam date and time: 08/07/2024 9:59 PM Age: 64 years old Clinical indication: Lethargic, found down TECHNIQUE: Imaging protocol: Computed tomographic angiography of the head with contrast. Exam focused on the arteries. 3D rendering (Not supervised by radiologist): MIP and/or 3D reconstructed images were created by the technologist. Radiation optimization: All CT scans at this facility use at least one of these dose optimization techniques: automated exposure control; mA and/or kV adjustment per patient size (includes targeted exams where dose is matched to clinical indication); or iterative reconstruction. Contrast material: ISO 370; Contrast volume: 80 ml; Contrast route: INTRAVENOUS (IV); COMPARISON: CT ANGIO HEAD 08/07/2024 9:59 PM FINDINGS: ANTERIOR CIRCULATION: Right internal carotid artery: Intracranial segment is patent with no significant stenosis. No aneurysm. Right middle cerebral artery: No occlusion or significant stenosis. No aneurysm. Right anterior cerebral artery: No occlusion or significant stenosis. No aneurysm. Left internal carotid artery: Intracranial segment is patent with no significant stenosis. No aneurysm. Left middle cerebral artery: No occlusion or significant stenosis. No aneurysm. Left anterior cerebral artery: No occlusion or significant stenosis. No aneurysm. POSTERIOR CIRCULATION: Right vertebral artery: No occlusion or significant stenosis. No aneurysm. Left vertebral artery: No occlusion or significant stenosis. No aneurysm. Basilar artery: No occlusion or significant stenosis. No aneurysm. Right posterior cerebral artery: No occlusion or significant stenosis. No aneurysm. Left posterior cerebral artery: No occlusion or significant stenosis. No aneurysm. Brain: Intracranial vascular calcifications. Cerebral ventricles: No ventriculomegaly. Paranasal sinuses: Moderate mucosal thickening sphenoid sinus. Bones/joints: Unremarkable. No acute fracture. Soft tissues: Unremarkable. Other findings: No evidence for large vessel occlusion. IMPRESSION: 1. No evidence for large vessel occlusion. 2. No evidence for intracranial hemorrhage, mass lesions or acute stroke. 3. Intracranial vascular calcifications.
[2024-08-07 20:33] LABS: ABG Base Excess 5.5 mmol/L (-2.4-2.3); ABG HCO3 27.7 mmhg (22.0-26.0); ABG Oxygen Saturation 100 % (90-100); ABG PCO2 31.5 mmhg (35.0-45.0); ABG PO2 492.5 mmhg (80-100); ABG TCO2 28.7 mmhg (23-27); Lactate Arterial 1.4 mmol/L (0.4-2.0)
--- NOTE | 2024-08-07 20:43 | PC.NURSE ---
per Lisa Pillai Medic, Manual BP 50/30 in left arm
--- NOTE | 2024-08-07 20:44 | PC.NURSE ---
2040- called Lab and spoke with Eboni reported that we needed 2 units emergent blood per MD Howard,
--- NOTE | 2024-08-07 20:45 | PC.NURSE ---
rectal temp 101.3. both sets blood cultures are in lab
[2024-08-07 20:46] LABS: Allen's Test Non Applicable; Oxygen 100 %
[2024-08-07 20:47] LABS: ABG PH 7.56 mmol/L (7.35-7.45); Source Left Brachial
[2024-08-07 20:57] LABS: Basophils % 0.6 % (0.1-2.0); Eosinophils % 0.3 % (0.1-12.0); Lymphocytes # 0.5 K/mm3 (0.7-4.5); Lymphocytes % 38.3 % (10-50); Mean Corpuscular HGB Conc 34.6 g/dL (31.8-35.4); Mean Corpuscular Volume 121.4 fl (81-99); Mean Platelet Volume 9.2 fl (7.4-10.4); Monocytes % 2.6 % (1.7-9.3); Neutrophils # 0.8 K/mm3 (1.8-7.8); Neutrophils % 58.2 % (37.0-80.0); Platelet Count 94 K/mm3 (142-424); Red Cell Distribution Width 18.7 % (11.5-17.5); White Blood Count 1.3 K/mm3 (4.8-10.8)
[2024-08-07 21:02] LABS: Red Blood Count 0.79 M/mm3 (4.20-5.40)
[2024-08-07 21:08] LABS: Alanine Aminotransferase 12 U/L (12-78); Albumin Level 2.8 g/dl (3.5-5.0); Albumin/Globulin Ratio 1.3 (1.1-1.8); Alkaline Phosphatase 48 U/L (38-126); Anion Gap 8.1 mEq/L (5-15); Aspartate Amino Transferase 17 U/L (14-36); Bilirubin,Total 1.1 mg/dl (0.2-1.3); Blood Urea Nitrogen 18 mg/dl (7-17); Calcium 7.6 mg/dl (8.4-10.2); Carbon Dioxide 26 mmol/L (22.0-30.0); Chloride 101 mmol/L (98-107); Creatinine Clearance Estimated 42 mL/min (50-200); Estimated Glomerular Filt Rate 85 ml/min (>60); GFR (African American) 103 ML/MIN (>60); Globulin 2.1 g/dL (1.3-3.2); Glucose 140 mg/dl (74-100); Hematocrit 9.6 % (37.0-47.0); Hemoglobin 3.3 g/dL (12.2-16.2); Potassium 3.1 mmoL/L (3.5-5.1); Sodium 132 mmol/L (136-145); Total Protein,Serum 4.9 g/dl (6.3-8.2)
[2024-08-07 21:20] LABS: Activated Partial Thrombo Time 20.2 seconds (22.8-30.6); INR 1.18 (0.9-1.1)
[2024-08-07 21:22] LABS: Troponin I 0.82 ng/ml (0.00-0.034)
[2024-08-07 21:25] LABS: T4 (Thyroxine) 13.7 ug/dl (5.53-11.0)
[2024-08-07 21:29] LABS: NT Pro Brain Natriuretic Pep. 2310 pg/mL (0-125)
[2024-08-07] MEDS: VANCOMYCIN CONSULT REQUEST 1 EACH NOTAPPLIC (21:30)
[2024-08-07 21:39] LABS: Thyroid Stimulating Hormone 2.44 uIU/mL (0.465-4.68)
[2024-08-07 21:53] LABS: HIV (1&2) Antibody Rapid NONREACTIVE (NONREACTIVE)
[2024-08-07] MEDS: diphenhydrAMINE 50MG/ML VIAL 50 MG IV (21:58)
[2024-08-07] MEDS: VANCOMYCIN HCL 1,000 MG in 0.9 % SODIUM CHLORIDE 250 ML 125 MG IV (21:59)
[2024-08-07] MEDS: CEFEPIME HCL 2 GM in 0.9 % SODIUM CHLORIDE 100 ML IV (21:59)
[2024-08-07] MEDS: METRONIDAZ/SOD CHL 500 MG/100 ML PIGGYBACK 100 MG IV (22:00)
[2024-08-07] MEDS: LACTATED RINGERS 680 ML IV (22:00)
--- NOTE | 2024-08-07 22:10 | PC.NURSE ---
Called RAD to power share all images to [facility] per MD Song. Spoke with Angela and she stated she'll send as soon as they're finished.
[2024-08-07] MEDS: SODIUM CHLORIDE 0.9% 10ML SYR (RAD ONLY) 10 ML IV (22:31)
[2024-08-07] MEDS: IOPAMIDOL-370 (76%);100ML BOTTLE 160 ML IV (22:31)
[2024-08-07] MEDS: 0.9 % SODIUM CHLORIDE 50 ML VIAL IV (22:31)
[2024-08-07 22:40] LABS: Hemoglobin 6.6 g/dL (12.2-16.2)
[2024-08-07 22:41] LABS: Hematocrit 18.5 % (37.0-47.0)
--- NOTE | 2024-08-07 22:52 | PC.NURSE ---
Patient arrived to the ED via EMS and was directed to 3 where using a draw sheet method patient was transferred to hospital [facility], I attempted an 18 ga IV in patients L AC with no success, I then attempted an 18ga IV in patients R AC and was successfully established the IV and labs were drawn along with blood for a type and screen for lab. After that I then began running lactated ringers through the 18ga IV at a TKO rate. After patients lab work resulted Dr. Howard ordered 2 units of emergent blood that was administered by Delilah Muhammad, I established a 16ga IV in the patients L forearm flushed and secured, both units of blood ran concurrently under pressure bags patient was administered 50mg of Benadryl for a possible reaction to blood products. After the patient received blood she was disconnected and taken to CT, once returned from CT patient was placed on 3 antibiotics. As per the MAR patient I administered Cefepime 1 gram 100mL @ 200mL's/hr started at 2241, also Vancomycin 1g 250mL's @ 125mL's/hr started at 2235 then finally administered Flagyl at 2240 100mL's @ 100mL's/hr. Patients H and H was also redrawn prior to the anitbiotics being started. I then assisted in placing a brower catheter in this patient.
--- NOTE | 2024-08-07 22:53 | PC.NURSE ---
Emergent Blood [place] Dominguez Female :1960 MedRec: [id number] 08/07/2024 2305 Nurse Note by Irais Krishna RN : 1960 Patient Age: 64 Emergent Released Blood Documentation Product 1 Unit Number: [id number] Product 2 Unit Number: [id number] Start Time: 205008/07/24 Start Time: 2053 Stop Time: 212008/07/24 Stop Time: 2120 Vitals: Pre- BP-50/30, HR 96 O2 92% Temp 101.3 Start: 98/54 HR 98 O2 94 T 101.7 5 min: 100/54 HR 99 O2 94 T101.7 10 min: 97/59 HR 91 O2 94 T 101.7 15 min: 109/66 HR 89 O2 97 T 101.9 30 min: 105/60 HR 86 O2 88 T 101.9 45 min 116/59 HR 92 O2 93 T 102.0 1 hour 100/62 HR 96 O2 94 T 102.0 Completion: 118/59 HR 95 O2 95 102.7 1 hour post: 112/71 HR 92 O2 92 102.6 Pt rec'd 2 units of emergent blood. 20:59 Pt had a small reaction (urticaria) on the L arm. was informed and before Benadryl was given, it had already cleared up. Pt had no further reactions as blood finished transfusing. 2106 50 IV Benadryl was given Per MD orders, blood was not stopped.
--- NOTE | 2024-08-07 23:29 | PC.NURSE ---
Called about a transfer. They said they will give us a call back as soon as possible.
[2024-08-07 23:31] LABS: Appearance,Urine CLEAR (Clear); Bilirubin,Urine Negative (Negative); Blood, Urine Negative (Negative); Color,Urine YELLOW (Yellow); Glucose,Urine (UA) Negative (Negative); Ketones,Urine Negative (Negative); Leukocyte Esterase,Urine Negative (Negative); Microscopic, Urine URINE MICROSCOPIC (MICROSCOPIC); Nitrate,Urine Negative (Negative); Protein,Urine Negative (Negative); Specific Gravity, Urine <= 1.005 (1.005-1.030)
--- NOTE | 2024-08-07 23:34 | PC.NURSE ---
[facility] called back, doctor talking to at this time.
[2024-08-07 23:43] LABS: Bacteria,Urine 1+ /lpf; Squamous Epithelial Cell,Urine Occasional #/hpf (0-5)
--- NOTE | 2024-08-07 23:48 | PC.NURSE ---
declined ICU bed. Called for a transfer, we are awaiting a call back at this time.
[2024-08-08] VITALS (19 sets, daily range): BP systolic 75–113; BP diastolic 37–71; PULSE 75–94; RESP 14–31; TEMP 39–39.2; O2SAT 98–100
[2024-08-08] MEDS: CALCIUM GLUC IN NACL, ISO-OSM 2 GM/100 ML BAG IV ×2 (00:08→01:18)
[2024-08-08] MEDS: ACETAMINOPHEN 1,000MG/100ML VIAL 1000 MG IV (00:08)
[2024-08-08] MEDS: NOREPINEPHRINE BITARTRATE/D5W 8 MG/250 ML PLAST..BAG 15 MG IV (00:10)
--- NOTE | 2024-08-08 00:19 | ECG_ITS ---
APPROVED REPORT Exam: Resting ECG HR:93 bpm ECG Measurements Heart Rate 93 AXES DC 141 P -12 QRSd 81 QRS 79 QT 271 T -8 QTc 322 Conclusion SINUS RHYTHM NONSPECIFIC ST & T-WAVE ABNORMALITY ABNORMAL ECG UNCONFIRMED REPORT Electronically signed by : ESTEFANIA DE LEON, 08/08/2024 06:47:09
--- NOTE | 2024-08-08 00:20 | PC.NURSE ---
pt weaned to 5L NC at this time O2 sat 100%
--- NOTE | 2024-08-08 00:21 | PC.NURSE ---
speaking with at this time.
--- NOTE | 2024-08-08 00:36 | PC.NURSE ---
pt weaned to 4L NC at this time.
--- NOTE | 2024-08-08 00:44 | PC.NURSE ---
While receiving a bed assignment from they transferred me to [facility] and they were unavailable for flight, called [facility] and [facility] accepted the flight with a 29 min ETA
[2024-08-08 00:53] LABS: Troponin I 2.11 ng/ml (0.00-0.034)
--- NOTE | 2024-08-08 01:01 | PC.NURSE ---
pt titrated to 3L NC at this time.
[2024-08-08] MEDS: HYDROCORTISONE SOD SUCCINATE 100MG VIAL 100 MG IV (01:18)
--- NOTE | 2024-08-08 13:17 | PC.NURSE ---
faxed [facility] prelim to where pt was transferred [phone]
[2024-08-09 06:16] LABS: HCV Ab Non Reactive (Non Reactive)
--- NOTE | 2024-08-11 08:14 | PC.NURSE ---
faxed final to
== END 2024-08-08 01:44 | disposition other institution (70) ==
PROVIDERS: Emergency Provider Emergency Medicine; PCP Family Medicine
DX: A41.9 Sepsis, unspecified organism (principal); I21.4 Non-ST elevation (NSTEMI) myocardial infarction; D64.9 Anemia, unspecified; D61.818 Other pancytopenia; K59.89 Other specified functional intestinal disorders; R53.83 Other fatigue; R41.82 Altered mental status, unspecified
CPT/HCPCS: 70450; 70496; 70498; 71045; 71275; 72125; 72128; 72131; 72170; 74174; 80050; 80053; 81001; 82803; 83605; 83880; 84436; 84443; 84484; 85014; 85018; 85025; 85610; 85730; 86803; 86850; 86870; 87040; 87077; 87186; 87389; 93005; 96361; 96365; 96366; 96374; 99291; 99292; J0131; J1200; J3370; J7050; J7120; P9016; Q9967